=== PATIENT | female | born 1990 | race Caucasian/White ===

== ENCOUNTER 2017-12-31 04:57 | Inpatient (IN) ==
[2017-12-31] MEDS ORDERED: RINGER'S SOLUTION,LACTATED 1,000 ML IV PRN (04:59)
[2017-12-31] MEDS ORDERED: OXYTOCIN 20 UNITS in RINGER'S SOLUTION,LACTATED 1,000 ML IV ONE ×2 (04:59→08:55)
[2017-12-31] MEDS ORDERED: ceFAZolin SODIUM 3 GM in DEXTROSE 5 % IN WATER 100 ML IV ONE ×2 (04:59)
[2017-12-31] MEDS ORDERED: RINGER'S SOLUTION,LACTATED 1,000 ML IV ONE ×3 (05:20→14:42)
--- NOTE | 2017-12-31 07:24 | ANES ---
Anesthesia Pre Procedure Eval Vitals/Labs: Last Vital Signs Temp 36.6 C 12/31/17 06:14 Pulse 125 H 12/31/17 06:14 Resp 20 12/31/17 06:14 BP 134/86 12/31/17 06:14 Pulse Ox 98 12/31/17 06:14 HOME MEDICATIONS Vits96/Iron Fum/Folic [ S] 1 tab PO DAILY 07/16/15 [Last Taken 12/30/17] Allergies/Adverse Reactions: Allergies Allergy/AdvReac Type Severity Reaction Status Date / Time No Known Drug Allergies Allergy Verified 12/31/17 05:16 - Planned Procedure Planned Procedure: Section with Bilateral Salpingectomy Medication List Reviewed:: Yes Allergies Verified: Yes Medical History (Last Reviewed 12/31/17 @ 07:22 by Emeterio Velazquez CRNA) Depression Onset Date: ~08/04/11 Insomnia Onset Date: ~07/03/11 Paroxysmal supraventricular tachycardia Onset Date: ~06/06/11 Pyorrhea gum disease Onset Date: ~07/26/14 Snoring Onset Date: ~07/12/11 Tobacco abuse Onset Date: ~12/19/14 Weight gain Onset Date: ~03/10/11 Morbid obesity Onset Date: ~07/28/14 Bronchitis Onset Date: ~04/17/15 History of genital warts History of pre-eclampsia Onset Date: ~2014 Hypertension Onset Date: ~2011 TMJ (temporomandibular joint disorder) Onset Date: ~2012 Surgical History (Last Reviewed 12/31/17 @ 07:22 by Emeterio Velazquez CRNA) History of cardiac catheterization Previous section Onset Date: ~200907/16/15 History of tonsillectomy and adenoidectomy Family History (Last Reviewed 12/31/17 @ 07:22 by Emeterio Velazquez CRNA) Mother Hypertension Grandmother Diabetes Grandmother Thyroid disease Grandfather Hypertension Heart disease - Family Anesthesia History Family History:: no untoward family reactions to anesthesia, no familial bleeding tendencies, no family history of clotting disorders, no family history of premature - Airway/Neck/Teeth Within Normal Limits:: Yes Teeth Condition: Intact Mallampatti Score: 3 Thyromental (T-M) distance: > 6 cm Mandibulo Hyoid distance: > 3 cm - Respiratory Discussed smoking cessation including day of surgery: No Sleep Apnea currently treated: No Sleep Apnea by current assessment: No Discussed Risks/Treatment of JOHANA: No - Cardiovascular Patient History - Cardiac/Respiratory: Arrhythmias Tolerates Activity: Good Heart Sounds: S1 & S2, Regular - Anesthesia Assessment and Plan ASA Class: PS, II Anesthesia Type Plan: Spinal
[2017-12-31] MEDS ORDERED: SENNOSIDES 8.6 MG TABLET PO PRN (08:55)
[2017-12-31] MEDS ORDERED: diphenhydrAMINE HCL 25 MG CAPSULE PO PRN (08:55)
[2017-12-31] MEDS ORDERED: SIMETHICONE 80 MG TAB.CHEW PO PRN (08:55)
[2017-12-31] MEDS ORDERED: ONDANSETRON HCL/PF 2 MG/ML VIAL IV PRN (08:55)
[2017-12-31] MEDS ORDERED: HYDROcodone/ACETAMINOPHEN 1 EACH TABLET PO PRN (08:55)
[2017-12-31] MEDS ORDERED: BISACODYL 10 MG SUPP.RECT RC PRN (08:55)
--- NOTE | 2017-12-31 09:08 | ANES ---
Post Anesthesia Discharge - Transfer of Care Transfer of Care handoff given to nurse: Yes - Discharge from PACU Discharge from PACU when meets criteria: Yes - Discharge to ASU Discharge to ASU-no complications/pt stable: Yes
--- NOTE | 2017-12-31 09:21 | OR ---
Operative Report - Dictated Report Narrative: Date of delivery: 12/31/2017 Time of delivery: 817 Gender: female weight: 3810 grams APGARS: 10/24 Preoperative diagnosis: IUP @ 39 w 0 d, GHTN, polyhydramnios, morbid obesity, desires sterilization Postoperative diagnosis: same and meconium stained amniotic fluid (light) Procedure: repeat delivery, bilateral salpingectomy Surgeon: Dr. Arguello Anesthesia: spinal Anesthesiologist: Emeterio Velazquez CRNA Indications for the procedure: The patient is a 27 year old @ 39w 0d who presented to L&D for a repeat delivery and bilateral salpingectomy. All risks, benefits, and alternatives of the procedure were explained to the patient and the patient consented to the procedure. Description of the procedure: The patient was taken to the operating room where spinal anesthesia was induced. She was then prepped and draped in the supine position in the standard surgical fashion. Attention was then turned to the abdomen. A Pfannestiel skin incision was made and the incision was carried through the subcutaneous tissue. The fascia was incised in the midline. In the midline the fascia led directly to the peritoneum and into the abdomen. The fascia was dissected from the underlying rectus muscle. The peritoneum was already open as above. The lower uterine segment was incised in a low transverse fashion. There was a uterine window. The head was delivered atraumatically. The rest of the infant was delivered atraumatically. The umbilical cord was clamped and cut and the infant was handed off the pediatric staff. Cord blood was collected. The placenta was delivered by expression. The uterus was cleared of all clots and debris. The uterine incision was closed with 0-vicryl in a running, locking fashion. The left fallopian tube was identified by following it to the fimbriated end. The fallopian tube was cut along the mesosalpinx all the way to the cornual region. The same procedure was repeated on the right. The uterine incision was re-examined and a small perforation was noted in the lower segment consistent with a thin lower segment. A figure of eight suture was placed using 0-vicryl. The fascia was closed with 1-0 vicryl. The subcutaneous tissue was reapproximated with 2-0 vicryl. The skin was closed with 3-0 monocryl on a Seamus needle. Dermabond was placed over the incision. All sponge, lap, and needle counts are correct. The patient tolerated the procedure well. She was transferred to the recovery room in stable condition. EBL: 1000 mL Complications: none Definition: * The number of deliveries resulting in a live the patient experienced prior to current hospitalization * The previous delivery of live twins or any live multiple gestation is considered one live event. *If primagravida or nulliparous is documented select zero for the number of previous live births. Live births: 2
[2017-12-31] MEDS: KETOROLAC TROMETHAMINE 30 MG/ML VIAL IV PRN ×3 (09:36→23:54)
[2017-12-31] MEDS: HYDROcodone/ACETAMINOPHEN 1 EACH TABLET PO PRN ×3 (09:36→23:54)
[2017-12-31] MEDS: DOCUSATE SODIUM 100 MG CAPSULE PO SCH ×2 (10:19→21:19)
--- NOTE | 2017-12-31 10:33 | ANES ---
Post Anesthesia Assessment - Vital Signs Vitals: Last Vital Signs Temp 36.4 C 12/31/17 09:58 Pulse 92 12/31/17 10:12 Resp 16 12/31/17 10:12 BP 164/96 H 12/31/17 10:12 Pulse Ox 100 12/31/17 10:12 Airway Patency: Normal - Mental Status Level Of Consciousness: Awake - Pain Level Pain Score: 0 - N/V Assessment Nausea/Vomiting Presence: None Dehydration:: No
--- NOTE | 2017-12-31 10:58 | PN ---
Progess Note - Interim Date: 12/31/17 Time: 10:57 Narrative: 12/31/17 10:57 Called by RN regarding BPs in the severe range after delivery. Check pre- eclampsia labs and UP:CR. Start procardia 30mg PO XL. If BPs are not controlled will increase to procardia 60mg PO XL. Check UDS as per routine. Would likely be positive for opioids due to recent .
[2017-12-31] MEDS: NIFEdipine 30 MG TAB.SR.24H PO SCH (11:01)
[2017-12-31 11:35] LABS: Hematocrit 38.4 % (37.0-47.0); Hemoglobin 12.9 gm/dL (12.5-16.0); Mean Cell Volume 92.8 fl (78-100); Mean Corpuscular Hemoglobin 31.2 pg (27-31); Mean Corpuscular Hgb Conc 33.6 g/dl (32-36); Neutrophil # 14.3 K/mm3 (1.3-6.0); Neutrophil % 83.4 % (42-75.0); Platelet Count 175 K/mm3 (150-450); Red Blood Count 4.14 M/mm3 (4.2-5.4); Red Cell Distribution Width 13.8 % (11.5-14.0); White Blood Count 17.2 K/mm3 (4.0-10.5)
[2017-12-31 11:43] LABS: Random Urine Total Protein 79.2 mg/dL (0-12)
[2017-12-31 11:46] LABS: Albumin * 2.2 gm/dl (3.4-5.0); Anion Gap 14.5 mmol/L (6.8-13.8); BUN/Creatinine Ratio 13.6 (9.0-21.6); Bilirubin, Total 0.4 mg/dL (0.0-1.1); Ca. Corrected For Albumin 9.8 mg/dL (8.4-10.2); Calcium * 8.7 mg/dL (7.9-10.9); Carbon Dioxide 23.2 mmol/L (24-32.6); Potassium 3.7 mmol/L (3.4-4.6)
[2017-12-31 11:46] LABS: Cocaine Ur Negative (NEGATIVE); Urine Barbiturate Negative (NEGATIVE); Urine Benzodiazepines Negative (NEGATIVE); Urine Opiates Negative (NEGATIVE); Urine PCP Negative (NEGATIVE); Urine THC Negative (NEGATIVE)
[2018-01-01] MEDS: IBUPROFEN 800 MG TABLET PO PRN ×2 (06:52→16:04)
[2018-01-01] MEDS: HYDROcodone/ACETAMINOPHEN 1 EACH TABLET PO PRN ×2 (06:52→16:04)
[2018-01-01] MEDS: DOCUSATE SODIUM 100 MG CAPSULE PO SCH ×2 (08:54→20:30)
[2018-01-01] MEDS: NIFEdipine 30 MG TAB.SR.24H PO SCH (08:54)
--- NOTE | 2018-01-01 10:10 | PN ---
Subjective - Date and Time Seen Date: 01/01/18 Time: 10:08 Subjective Narrative: Pt without complaints. Objective Objective Narrative: See vital signs - Review of Systems Generalized/Overall Review: Reports: No Symptoms Reported Cardiac: Reports: Edema Misc: All systems neg except as marked - Vitals Vitals: Last Vital Signs Temp 36.4 C 01/01/18 07:09 Pulse 115 H 01/01/18 08:54 Resp 18 01/01/18 07:09 BP 141/85 H 01/01/18 08:54 Pulse Ox 99 01/01/18 07:09 - Abnormal Lab Findings Abnormal Lab Findings: Abnormal Lab Results 12/31/17 12/31/17 12/31/17 Range/Units 10:55 11:00 11:00 WBC 17.2 H (4.0-10.5) K/mm3 RBC 4.14 L (4.2-5.4) M/mm3 MCH 31.2 H (27-31) pg Immature Gran % (Auto) 0.60 H (0.001-0.429) % Immature Gran # (Auto) 0.11 H (0.000-0.0310) K/mm3 Neutrophils % 83.4 H (42-75.0) % Lymphocytes % 11.2 L (20-51) % Neutrophils # 14.3 H (1.3-6.0) K/mm3 Carbon Dioxide 23.2 L (24-32.6) mmol/L Anion Gap 14.5 H (6.8-13.8) mmol/L ALT 16 L (19-67) U/L Total Protein 6.0 L (6.2-8.2) gm/dL Albumin 2.2 L (3.4-5.0) gm/dl U Random Total Protein 79.2 H (0-12) mg/dL U [place] Prot/Creat Ratio 633 H (0-199) mg/gm - Exam Constitutional: Present: Alert, Oriented x3, Cooperative, No distress Abdomen: Present: soft, nontender, nondistended - incision c/d/i Extremity: Present: non-tender, no calf tenderness, pedal edema Skin Exam: Present: normal color, warm/dry, no cyanosis Appearance: Present: appropriate appearance Eye contact: Present: cooperative Thoughts: Present: normal thought pattern Cauti Physician Documentation - Urinary Catheter Management Urethral ([place]os[place]) Urethral Indwelling: No Date of Insertion: 12/31/17 Time of Insertion: 08:05 Date of Removal: 12/31/17 Time of Removal: 20:32 Assessment/Plan Plan Narrative: POD 1 s/p repeat delivery, bilateral salpingectomy Doing well Discharge tomorrow Continue BP medication for 6 weeks PP
[2018-01-02] MEDS: HYDROcodone/ACETAMINOPHEN 1 EACH TABLET PO PRN (07:34)
[2018-01-02] MEDS: DOCUSATE SODIUM 100 MG CAPSULE PO SCH (10:39)
[2018-01-02] MEDS: NIFEdipine 30 MG TAB.SR.24H PO SCH (10:39)
[2018-01-02 10:42] VITALS: BP 143/87
--- NOTE | 2018-01-02 11:39 | PN ---
Subjective - Date and Time Seen Date: 01/02/18 Time: 11:37 Subjective Narrative: Pt without complaints. Objective Objective Narrative: See vital signs - Review of Systems Generalized/Overall Review: Reports: No Symptoms Reported Cardiac: Reports: Edema Misc: All systems neg except as marked - Vitals Vitals: Last Vital Signs Temp 36.7 C 01/02/18 07:37 Pulse 104 H 01/02/18 10:47 Resp 18 01/02/18 10:47 BP 143/87 H 01/02/18 10:47 Pulse Ox 98 01/02/18 07:37 - Exam Constitutional: Present: Alert, Oriented x3, Cooperative, No distress Abdomen: Present: soft, nontender, nondistended - incision well healed Extremity: Present: non-tender, no calf tenderness, pedal edema Skin Exam: Present: normal color, warm/dry, no cyanosis Appearance: Present: appropriate appearance Eye contact: Present: cooperative Thoughts: Present: normal thought pattern Cauti Physician Documentation - Urinary Catheter Management Urethral (Boswell) Urethral Indwelling: No Date of Insertion: 12/31/17 Time of Insertion: 08:05 Date of Removal: 12/31/17 Time of Removal: 20:32 Assessment/Plan Plan Narrative: POD 2 s/p delivery Discharge home BP stable. Continue procardia. Pre-eclampsia precautions given Follow-up as instructed - Problems/Diagnosis (1) Sterilization Problem: Acute (2) Sterilization Problem: Acute (3) Pre-eclampsia Problem: Acute (4) Pre-eclampsia Problem: Acute
== END 2018-01-02 13:00 | disposition home or self-care (01) | DRG 784 ==
LOC: OB 04:57
PROVIDERS: ADMIT Obstetrics & Gynecology; ATTEND Obstetrics & Gynecology
CPT/HCPCS: 36415; 59025; 80053; 80307; 82570; 84155; 84156; 85025; 86850; 86900; 88302; G0479